=== PATIENT | female | born 1960 | race African-American/Black ===

== ENCOUNTER 2022-02-16 02:39 | Emergency (ER) | payer OTHER ==
[2022-02-16 03:51] VITALS: TEMP 98.3; BMI 42.0
[2022-02-16] MEDS: ALBUTEROL SO4 2.5/IPRATROPIUM 0.5 INH SOL 3 ML VIAL.NEB. NEB SCH ×6 (06:10→07:27)
[2022-02-16] MEDS ORDERED: MAGNESIUM SULF 50% (8.12 MEQ/2 ML-1 GM VIAL) IVPB ONE ×2 (06:36→06:49)
[2022-02-16] MEDS ORDERED: methylPREDNISolone NA SUCC 125 MG/2 ML VIAL IVPUSH ONE (06:36)
[2022-02-16] MEDS ORDERED: methylPREDNISolone NA SUCC 125 MG/2 ML VIAL ONE (06:39)
[2022-02-16] MEDS ORDERED: MAGNESIUM 1GM/D5W - 1 GM/100 ML IVPB IVPB ONE ×2 (06:40→07:14)
[2022-02-16 07:13] LABS: EOS % 1.3 % (0-4.5); HEMATOCRIT 41.9 % (32.4-45.2); HEMOGLOBIN 14.1 GM/dL (10.7-15.3); LYMPH % 34.1 % (8-40); MCH 28.3 pg (25.7-33.7); MCHC 33.5 g/dl (32.0-36.0); MEAN CELL VOLUME 84.3 fl (80-96); MEAN PLT VOLUME 8.3 fl (7.5-11.1); MONO % 5.1 % (3.8-10.2); NEUT % 58.5 % (42.8-82.8); PLATELET COUNT 308 10^3/uL (134-434); RBC 4.97 M/mm3 (3.60-5.2); RDW 14.6 % (11.6-15.6); WHITE BLOOD COUNT 6.8 K/mm3 (4.0-10.0)
[2022-02-16] MEDS ORDERED: ALBUTEROL SO4 2.5/IPRATROPIUM 0.5 INH SOL 3 ML VIAL.NEB. NEB ONE (07:14)
[2022-02-16 07:31] LABS: ALBUMIN 4.7 g/dl (3.4-5.0); BLOOD UREA NITROGEN 17.6 mg/dL (7-18); CALCIUM 9.6 mg/dL (8.5-10.1); MAGNESIUM 1.7 mg/dL (1.8-2.4)
[2022-02-16 07:35] LABS: CREATININE 1.1 mg/dL (0.55-1.3)
[2022-02-16 07:36] LABS: BILIRUBIN,TOTAL 0.5 mg/dL (0.2-1); TOT PROT 8.2 g/dl (6.4-8.2)
[2022-02-16 08:16] VITALS: BP 143/71; PULSE 68
== END 2022-02-16 09:02 | disposition home or self-care (01) ==
LOC: JER 02:39
PROC: 3E033GC Introduction of Other Therapeutic Substance into Peripheral Vein, Percutaneous Approach (ICD-10-PCS; principal; 2022-02-16)
PROC: 3E0F7GC Introduction of Other Therapeutic Substance into Respiratory Tract, Via Natural or Artificial Opening (ICD-10-PCS; 2022-02-16)
DX: J45.901 Unspecified asthma with (acute) exacerbation (principal)
CPT/HCPCS: 0241U-QW; 36415; 71046-TC-FY; 80053; 83735; 84484; 85025; 93005; 93010; 99285-25

== ENCOUNTER 2023-01-06 21:51 | Emergency (ER) | payer OTHER ==
[2023-01-06 21:56] VITALS: BP 129/76; PULSE 71; RESP 18; TEMP 98; BMI 34.7
[2023-01-06] MEDS ORDERED: ACETAMINOPHEN 325 MG TABLET (FP) PO ONE (23:12)
[2023-01-06] MEDS ORDERED: LIDOCAINE 5% TOPICAL PATCH TP ONE (23:13)
[2023-01-06] MEDS ORDERED: LIDOCAINE 5% TOPICAL PATCH ONE ×2 (23:26→23:29)
[2023-01-06] MEDS ORDERED: ACETAMINOPHEN 325 MG TABLET (FP) ONE (23:26)
[2023-01-07] MEDS ORDERED: LIDOCAINE PATCH REMOVAL MC ONE (12:00)
== END 2023-01-07 01:23 | disposition home or self-care (01) ==
LOC: JER 21:51
DX: M54.6 Pain in thoracic spine (principal)
CPT/HCPCS: 72050-TC-FY; 99283-25